=== PATIENT | male | born 1995 | race Caucasian/White ===

== ENCOUNTER 2018-03-17 12:48 | Emergency (ER) | payer OTHER | END 2018-03-17 15:25 | disposition home or self-care (01) | LOC: FTE 12:48 | DX: S99.911A Unspecified injury of right ankle, initial encounter (principal); X58.XXXA Exposure to other specified factors, initial encounter; Y92.9 Unspecified place or not applicable | CPT/HCPCS: 29515; 73610-RT; 73630; 99283-25 ==